=== PATIENT | female | born 1960 | race Caucasian/White ===

== ENCOUNTER 2022-04-04 14:00 | Outpatient (RCR) | payer OTHER, SELFPAY | END 2022-04-04 14:53 | disposition home or self-care (01) | LOC: HO.PTCHIC 14:00 | PROVIDERS: PCP Nurse Practitioner Family; Visit Provider Orthopaedic Surgery | DX: Z96.651 Presence of right artificial knee joint (principal) | CPT/HCPCS: 97110; 97112; 97116; 97140; 97161; 97164; 97530 ==

== ENCOUNTER 2024-02-27 13:00 | Outpatient (RCR) | payer OTHER, SELFPAY | END 2024-09-16 11:05 | disposition home or self-care (01) | LOC: HO.OT 13:00 | PROVIDERS: PCP Registered Nurse; Visit Provider Physician Assistant Medical | DX: S42.411B Displaced simple supracondylar fracture without intercondylar fracture of right humerus, initial encounter for open fracture (principal); G89.18 Other acute postprocedural pain; S42.411A Displaced simple supracondylar fracture without intercondylar fracture of right humerus, initial encounter for closed fracture | CPT/HCPCS: 97035; 97110; 97140; 97166; 97530; 97535 ==